=== PATIENT | male | born 1940 | race Two or more races ===

== ENCOUNTER 2018-11-03 15:15 | Emergency (ER) | payer MEDICARE, MEDICAID ==
[~2018-11-03] VITALS: Ht 177.8 cm; Wt 86.9 kg
[~2018-11-03 15:15] MED LIST: ETOMIDATE 2MG/ML 10ML VIAL IV ONE; SUCCINYLCHOLINE CHLORIDE 200MG/10ML IV ONE
[2018-11-03] MEDS ORDERED: ETOMIDATE 2MG/ML 10ML VIAL IV ONE (16:15)
[2018-11-03] MEDS ORDERED: SUCCINYLCHOLINE CHLORIDE 200MG/10ML IV ONE (16:15)
[2018-11-03] MEDS ORDERED: DEXAMETHASONE 10 MG/ML VIAL IV ONE (16:15)
[2018-11-03] MEDS ORDERED: MANNITOL 20% (20GM/100ML) BAG 500ML PREMIX IV ONE (16:15)
[2018-11-03 16:29] LABS: HEMATOCRIT. 34.4 % (42.0-52.0); HEMOGLOBIN. 11.5 g/dL (14.0-18.0); MEAN CORPUSCULAR HEMOGLOBIN 29.7 pg (28.0-32.0); MEAN CORPUSCULAR VOLUME 88.9 fL (80.0-94.0); MEAN PLATELET VOLUME 8.5 fl (7.4-10.4); PLATELET 234 x1000/uL (130-400); RED BLOOD CELL COUNT 3.87 mill/uL (4.7-6.1); RED CELL DISTRIBUTION WIDTH 14.7 % (11.6-14.6)
[2018-11-03] MEDS ORDERED: ONDANSETRON HCL 4MG/2ML INJ IV ONE (16:30)
[2018-11-03] MEDS ORDERED: LABETALOL 5MG/ML SYR 20 MG/4 ML SYRINGE IV ONE (16:30)
[2018-11-03] MEDS ORDERED: MANNITOL 20% 250 ML IV NR (16:30)
[2018-11-03] MEDS ORDERED: NICARDIPINE 50 MG in SODIUM CHLORIDE 0.9% 230 ML IV PRN (16:30)
[2018-11-03 16:34] LABS: INR 1.2
[2018-11-03 16:35] LABS: CHLORIDE 100 mEq/L (98-107)
[2018-11-03 16:39] LABS: ETHANOL BLOOD < 10 mg/dL
[2018-11-03 16:43] LABS: CREATINE KINASE 87 IU/L (39-308)
[2018-11-03] MEDS ORDERED: NICARDIPINE 40MG/200ML PREMIX 200 ML IV SCH (16:45)
[2018-11-03] MEDS ORDERED: LEVETIRACETAM 1000MG/100ML 100 ML IV ONE (17:15)
[2018-11-03 18:00] VITALS: BP 135/56
[2018-11-03 19:49] LABS: PLATELET ESTIMATE NORMAL
== END 2018-11-03 18:44 | disposition short-term general hospital (02) ==
LOC: ER 15:15 → CANBEDREQ 11-04 01:52
DX: S06.4X0A Epidural hemorrhage without loss of consciousness, initial encounter (principal); S02.82XA Fracture of other specified skull and facial bones, left side, initial encounter for closed fracture; S06.5X0A Traumatic subdural hemorrhage without loss of consciousness, initial encounter; X58.XXXA Exposure to other specified factors, initial encounter; Y93.89 Activity, other specified; Y92.89 Other specified places as the place of occurrence of the external cause; Y99.8 Other external cause status
CPT/HCPCS: 31500; 36415; 70450; 71045; 80053; 82140; 82550; 83605; 83880; 84443; 84484; 85025; 85610; 85730; 86850; 86900; 86901; 87186; 93005; 94002; 96365; 96367; 96375; 99285; J0330; J1100; J1953; J2405; J3490